=== PATIENT | male | born 1950 | race Caucasian/White ===

== ENCOUNTER 2017-06-24 00:37 | Inpatient (IN) ==
[2017-06-18 09:00] LABS: MANUAL DIFF NEEDED? NO
[2017-06-18 09:00] LABS: URINE MICRO REVIEW NEEDED? NO; URINE SOURCE CLEAN CATCH
[2017-06-18 09:10] LABS: BILIRUBIN URINE NEGATIVE (NEGATIVE); BLOOD URINE NEGATIVE (NEGATIVE); COLOR YELLOW; GLUCOSE URINE NEGATIVE (NEGATIVE); LEUKOCYTES URINE NEGATIVE (NEGATIVE); NITRITE URINE NEGATIVE (NEGATIVE); PH URINE 5.5; PROTEIN URINE NEGATIVE (NEGATIVE); SP GRAVITY URINE 1.017; TURBIDITY URINE CLEAR (CLEAR); UROBILINOGEN URINE NORMAL (NORMAL)
[2017-06-18 09:14] LABS: UR EPITHELIAL CELLS <10 /HPF (<10); URINE BACTERIA NEGATIVE /HPF; URINE RBC <10 /HPF (<10); URINE WBC <10 /HPF (<10)
[2017-06-18 09:19] LABS: BASO% 0.2 % (0.0-0.8); EOS# 0.15 X1000 (0.0-0.7); EOS% 1.6 % (0.0-10.0); HEMATOCRIT 40.5 % (42.0-52.0); LYMPH# 5.99 X1000 (1.2-3.4); LYMPH% 65.8 % (20.5-51.1); MCH 29.7 PG (27-31); MCHC 34.6 g/dL (33-37); MONO# 0.54 X1000 (0.11-0.59); MONO% 5.9 % (1.7-9.3); NEUT% 26.5 % (42.2-75.2); PLT 101 X1000 (130-400); RBC 4.71 XMIL (4.7-6.1)
[2017-06-18 09:44] LABS: AGAP 18; BUN 15 mg/dL (8-22); CALCIUM 9.3 mg/dL (8.8-10.2); CHLORIDE 101 mmol/L (98-107); COSMO 286; POTASSIUM 3.8 mmol/L (3.5-5.1); SODIUM 142 mmol/L (136-145); TCO2 23 mmol/L (25-35)
--- NOTE | 2017-06-18 11:20 | EKG Report ---
Test Performed on : 06/18/2017 08:16:50 AM Test Reason : PAT Blood Pressure : / mmHG Vent. Rate : 079 BPM Atrial Rate : 079 BPM P-R Int : 154 ms QRS Dur : 100 ms QT Int : 412 ms P-R-T Axes : 036 008 048 degrees QTc Int : 472 ms Normal sinus rhythm. Normal ECG Baseline artifact, suspect secondary to tremor When compared with ECG of 03-JAN-2013 12:54, ST no longer elevated in Inferior leads QT has lengthened Confirmed by Davion Lovett MD ([id number]) on 06/20/2017 3:02:09 PM
[2017-06-24] MEDS ORDERED: COLACE ONE (05:37)
[2017-06-24] MEDS ORDERED: PEPCID ONE (05:37)
[2017-06-24] MEDS ORDERED: CELEBREX ONE (05:38)
[2017-06-24] MEDS ORDERED: LR 1,000 ML ONE (05:38)
[2017-06-24] MEDS ORDERED: LYRICA ONE (05:38)
[2017-06-24] MEDS ORDERED: REGLAN ONE (05:38)
[2017-06-24] MEDS ORDERED: KEFZOL 2 GM/D5W 2 GM/50 ML IVPB ONE (05:38)
[2017-06-24] MEDS ORDERED: TORADOL ONE ×2 (06:31→07:12)
[2017-06-24] MEDS ORDERED: DURAMORPH ONE (06:31)
[2017-06-24] MEDS ORDERED: MARCAINE 0.25% PF ONE (06:31)
[2017-06-24] MEDS ORDERED: EXPAREL 1.3% ONE (06:32)
[2017-06-24] MEDS ORDERED: NEOSPORIN G.U. IRRIGANT ONE (06:32)
[2017-06-24] MEDS ORDERED: SODIUM CHLORIDE 0.9% ONE (06:32)
[2017-06-24] MEDS ORDERED: CYKLOKAPRON 1,000 MG/NS 1,000 MG/100 ML IVPB ONE (06:32)
[2017-06-24 06:35] LABS: INR 0.96; PROTIME 10.1 Seconds (9.2-11.7); PTT 23.1 Seconds (22.0-36.0)
[2017-06-24] MEDS ORDERED: ROBINUL ONE (06:38)
[2017-06-24] MEDS ORDERED: QUELICIN (DOSE) ONE (06:38)
[2017-06-24] MEDS ORDERED: XYLOCAINE-MPF 2% ONE (06:38)
[2017-06-24] MEDS ORDERED: DIPRIVAN 1% ONE (06:38)
[2017-06-24] MEDS ORDERED: VERSED ONE (06:39)
[2017-06-24] MEDS ORDERED: OFIRMEV 1000 MG/ISOTONIC SOLN 1,000 MG/100 ML BOTTLE ONE (07:05)
[2017-06-24] MEDS ORDERED: DECADRON ONE (07:12)
[2017-06-24] MEDS ORDERED: ZOFRAN ONE (07:12)
--- NOTE | 2017-06-24 07:17 | HISTORY AND PHYSICAL ---
CHIEF COMPLAINT: Right shoulder pain. HISTORY OF PRESENT ILLNESS: This is a 66-year-old male with a history of degeneration of both his shoulders. He has had a left shoulder replaced in the past and did well. He states he had a crushing injury to his right shoulder in 1999 and had surgery on it at that time. Now shoulder has become so severe, he has difficulty with activities of daily living. He was evaluated in the office and found to need a right total shoulder arthroplasty. The surgical procedure as well as risks and benefits explained to the patient and at this time, agreed to proceed. ALLERGIES: Not allergic to medications. SERIOUS ILLNESSES: Hypertension, thyroid disorder. PAST SURGERIES: Right ankle, left knee, gallbladder, left shoulder, hernia, back, and right shoulder. REGULAR MEDICATIONS: Desyrel 150 one at bedtime, Flonase 1 spray per day, pravastatin 20 one a day, Seroquel 25 one a day, Synthroid 50 one a day, Zoloft 100 one a day. REVIEW OF SYSTEMS: HEENT: No history of migraines, dizziness, loss of conscious, CVA. Respiratory: Nonsmoker. No history of asthma, emphysema, or shortness breath. Heart: No history heart abnormalities. Abdomen: She has history of Crohn's. Musculoskeletal: Has history of back, neck, and shoulder pain. PHYSICAL EXAM: GENERAL: This is a 66-year-old male alert and oriented. Her primary care physician is Dr. Diaz. HEENT: Pupils equal, round, reactive. NECK: Full range of motion without adenopathy or masses. RESPIRATORY: Respirations are equal, unlabored, clear bilaterally. HEART: Regular rate and rhythm. ABDOMEN: Soft, nontender. Bowel sounds present. EXTREMITIES: He complains of pain about his right shoulder. He has difficulty with movement of his right shoulder. He states he also has some weakness in the right shoulder. IMPRESSION: Degenerative disease, right shoulder. PLAN: Admitted just time for right total shoulder arthroplasty. cc: Yehuda Moulton MD
[2017-06-24] MEDS ORDERED: FENTANYL ONE (07:29)
[2017-06-24] MEDS ORDERED: EPHEDRINE ONE (07:59)
[2017-06-24 08:02] LABS: URINE MICRO REVIEW NEEDED? NO; URINE SOURCE CATH
[2017-06-24 08:09] LABS: BILIRUBIN URINE NEGATIVE (NEGATIVE); BLOOD URINE NEGATIVE (NEGATIVE); COLOR YELLOW; GLUCOSE URINE NEGATIVE (NEGATIVE); LEUKOCYTES URINE NEGATIVE (NEGATIVE); NITRITE URINE NEGATIVE (NEGATIVE); PROTEIN URINE NEGATIVE (NEGATIVE); TURBIDITY URINE CLEAR (CLEAR); UROBILINOGEN URINE NORMAL (NORMAL)
[2017-06-24 08:11] LABS: UR EPITHELIAL CELLS <10 /HPF (<10); URINE BACTERIA NEGATIVE /HPF; URINE RBC <10 /HPF (<10); URINE WBC <10 /HPF (<10)
[2017-06-24] MEDS: DILAUDID ONE ×4 (09:27→10:03)
[2017-06-24] MEDS: FLONASE NAS SCH (09:53)
[2017-06-24] MEDS: SEROQUEL PO SCH (09:54)
[2017-06-24] MEDS: ZOLOFT PO SCH (09:54)
--- NOTE | 2017-06-24 10:22 | Diag Imaging Result Doc PS360 ---
SHOULDER 1 VIEW RIGHT - 06/24/2017 INDICATION: RT TOTAL SHOULDER REVERSE TECHNIQUE: COMPARISON: None FINDINGS: There is a right total shoulder arthroplasty. Alignment is anatomic. No hardware fracture or loosening. There are surgical clips in the right supraclavicular fossa. IMPRESSION: No complication. Electronically signed by Zac Pettit 06/24/2017 10:20 AM
[2017-06-24] MEDS ORDERED: NS 1,000 ML ONE (10:28)
[2017-06-24] MEDS ORDERED: MILK OF MAGNESIA PO PRN (10:45)
[2017-06-24] MEDS ORDERED: ZOFRAN PO PRN (10:45)
[2017-06-24] MEDS ORDERED: ZOFRAN IV PRN (10:45)
[2017-06-24] MEDS: OXY IR PO PRN ×3 (11:58→22:47)
[2017-06-24] MEDS: NS 1,000 ML IV SCH ×2 (11:59→22:47)
[2017-06-24] MEDS ORDERED: CYKLOKAPRON 1,000 MG in NS 100 ML IV ONE (13:15)
[2017-06-24] MEDS: DILAUDID IV PRN ×4 (13:53→22:47)
[2017-06-24] MEDS: KEFZOL 1 GM/D5W 1 GM/50 ML IVPB IV SCH ×2 (14:01→22:47)
[2017-06-24] MEDS: TYLENOL PO SCH ×2 (14:42→20:47)
[2017-06-24] MEDS: COLACE PO SCH (20:47)
[2017-06-24] MEDS: PERIDEX MT SCH (20:48)
[2017-06-24] MEDS ORDERED: DESYREL PO SCH (21:00)
[2017-06-24] MEDS ORDERED: PRAVACHOL PO SCH (21:00)
[2017-06-25] MEDS: DILAUDID IV PRN ×4 (02:02→08:35)
[2017-06-25] MEDS: OXY IR PO PRN ×3 (02:49→09:05)
[2017-06-25] MEDS: TYLENOL PO SCH ×2 (02:49→08:11)
--- NOTE | 2017-06-25 03:57 | OPERATIVE NOTE ---
PROCEDURE DATE: 06/24/2017 PREOPERATIVE DIAGNOSIS: Right glenohumeral arthritis. POSTOPERATIVE DIAGNOSIS: Right glenohumeral arthritis with significant thinning and partial tear of the rotator cuff. PROCEDURE: Right reverse shoulder arthroplasty with DePuy Delta XTEND size 14 humeral stem, a 42, + 6 humeral cup, a 42 eccentric Glenosphere, and a standard Metaglene. SURGEON: Yehuda Moulton MD. SKIN DRIER: CLIFFORD Fishman, who was present throughout the case and was critical in wound exposure, assistance with preparation of the bone for implants, implantation of the prosthesis, and wound closure. His assistance was critical for increasing the efficiency and decreasing the anesthesia time. SECOND RUNNER ON: Leobardo Hernandez RN. ANESTHESIA: General. IV FLUIDS: 1300 mL of lactated Ringer's. ESTIMATED BLOOD LOSS: 250 mL. COMPLICATIONS: None. INDICATION: The patient is a 66-year-old male who has a chronic history of worsening pain and discomfort in his right shoulder. He has had a longstanding history of pain and discomfort. He has had a previous procedure many years ago. His pain has progressed to affect his activities of daily living. X-rays revealed degenerative osteoarthritis. Recommendation to proceed with arthroplasty of the right shoulder was offered. Risks and benefits of surgery were explained including the risks of anesthesia, , bleeding, infection, failure to relieve pain, postoperative stiffness, nerve injury, blood clots, and other imponderables. All questions were answered. The patient was agreeable to this. DETAILS OF THE OPERATION: The patient was taken to the operating room and placed supine on the operating table. Once adequate anesthesia was obtained, the patient was placed in a semi-[place], beach-chair position. A standard deltopectoral incision was made with a skin knife. Hemostasis was obtained using electrocautery. The deltopectoral interval was then developed. Retractors were then placed. The clavipectoral fascia was then elevated as well. Approximately 1 cm medial to the subscapularis tendon, the subscapularis tendon was incised and a stay suture was placed and retracted medially. inspection of the posterior aspect of the rotator cuff revealed significant thinning and consistent with partial tear. Given this finding, proceeded with a further release of the remaining fibers. At this time, the decision was to proceed with a reverse shoulder arthroplasty. A starting reamer was placed into the superior aspect of the proximal humerus into the intramedullary canal. Sequential reaming was conducted up to a size 14. The intramedullary guide was then placed in position. The cutting block was pinned in position. The humeral head was then resected in a standard fashion. A protective disk was then placed. Retractors were then placed and circumferential dissection along the glenoid. The patient has significant tightness and therefore a few more millimeters of resection of the proximal humerus was conducted and the protective disk was placed once again. A guide was then placed on the glenoid and a guide pin was then placed. Reaming was then conducted. The central hole was then dilated and the guide pin was removed. Copious irrigation was then performed with antibiotic pulsatile lavage. A standard Metaglene was impacted in position. Three locking screws and one nonlocking screw was placed, and had good purchase. The wound was copiously irrigated with antibiotic pulsatile lavage. A 42 eccentric Glenosphere was then placed with the eccentricity placed inferiorly. Attention then turned to the proximal humerus where an intramedullary guide was placed once again. The proximal humerus was reamed. This was then removed. The wound was copiously irrigated with antibiotic pulsatile lavage. A size 14 press-fit stem was impacted in position and had excellent purchase. A trial cup size was then placed, 42, +6 humeral cup. It had excellent stability and range of motion. The trial cup was then removed. The wound was copiously irrigated once again. This was followed by a 42, +6 humeral cup. The shoulder was reduced, carried through a range of motion, had good range of motion and good stability. The wound was copiously irrigated once again. Exparel was placed in the deep soft tissue. Then #2 FiberWire was used to repair the subscapularis tendon and appeared to be a good repair. Irrigation was performed once again. This was followed by Exparel in the remaining deep tissue as well subcutaneous tissue. Irrigation was performed once again. This was followed by 2-0 Vicryl to repair the subcutaneous tissue and a running 2-0 Prolene. Benzoin and Steri-Strips were applied. Adaptic, sterile 4 x 4s, ABD pad, and tape were applied to the right shoulder, followed by a shoulder immobilizer. All counts were correct. Patient tolerated the procedure well and was transferred to the recovery room in stable condition. cc: Yehuda Moulton MD [facility]
[2017-06-25 06:11] LABS: HEMATOCRIT 26.8 % (42.0-52.0)
[2017-06-25 06:44] LABS: AGAP 9; BUN 12 mg/dL (8-22); CALCIUM 8.3 mg/dL (8.8-10.2); CHLORIDE 103 mmol/L (98-107); COSMO 282; POTASSIUM 4.7 mmol/L (3.5-5.1); SODIUM 141 mmol/L (136-145); TCO2 29 mmol/L (25-35)
[2017-06-25] MEDS ORDERED: SYNTHROID PO SCH (07:00)
[2017-06-25 07:30] VITALS: BP 121/68
--- NOTE | 2017-06-25 07:37 | PROGRESS NOTE ---
DATE: 06/25/2017 SUBJECTIVE: Patient is a pleasant 66-year-old male who is 1 day status post right reverse shoulder arthroplasty. He is currently resting comfortably. He has no complaints. PHYSICAL EXAMINATION: Patient's right shoulder, his dressing is intact. He is neurovascularly intact distally. LABORATORY DATA: His hemoglobin is 9.0, hematocrit is 26.8. IMPRESSION: 1. Postop day #1 status post right reverse shoulder arthroplasty. 2. Acute blood loss anemia asymptomatic. PLAN: At this point, we will change his dressing, discontinue his Kwon and Hep-Lock his IV. Plan on discharging home this morning. We will arrange for home physical therapy. Patient will follow up in 12 days. cc: Yehuda Moulton MD
[2017-06-25] MEDS: ZOLOFT PO SCH (08:11)
[2017-06-25] MEDS: SEROQUEL PO SCH (08:12)
[2017-06-25] MEDS: FLONASE NAS SCH ×2 (08:12→08:15)
[2017-06-25] MEDS: COLACE PO SCH (08:12)
[2017-06-25] MEDS: PERIDEX MT SCH (08:12)
[2017-06-25] MEDS ORDERED: PEPCID PO SCH (09:00)
[2017-06-25] MEDS ORDERED: INFLUENZA VACCINE IM ONE (09:02)
[2017-06-25] MEDS ORDERED: FLUZONE QUAD 2017-2018 SYRINGE IM ONE (09:15)
== END 2017-06-25 10:09 | disposition home health service (06) ==
LOC: SURHOLD 00:37 → 4N 09:16
PROVIDERS: ADMIT Orthopaedic Surgery Adult Reconstructive Orthopaedic Surgery; ATTEND Orthopaedic Surgery Adult Reconstructive Orthopaedic Surgery